=== PATIENT | male | born 1995 | race Caucasian/White ===

== ENCOUNTER 2021-09-04 14:02 | Emergency (ER) | payer OTHER ==
[~2021-09-04] VITALS: Ht 172.7 cm; Wt 70.0 kg
[2021-09-04] MEDS ORDERED: ONDANSETRON 4MG ODT PO ONE (14:45)
[2021-09-04] MEDS ORDERED: LORAZEPAM 1MG TABLET PO ONE (14:45)
[2021-09-04] MEDS ORDERED: CLONIDINE 0.1MG TABLET PO ONE (14:45)
[2021-09-04] MEDS ORDERED: DIPHENHYDRAMINE 50MG/ML VIAL IM ONE (15:30)
[2021-09-04 16:18] VITALS: BP 123/73
== END 2021-09-04 16:21 ==
LOC: ER 14:02
DX: M79.18 Myalgia, other site (principal); R61 Generalized hyperhidrosis; J34.89 Other specified disorders of nose and nasal sinuses
CPT/HCPCS: 96372; 99283; J1200; Q0162